=== PATIENT | female | born 2000 | race Caucasian/White ===

== ENCOUNTER → 2019-01-30 | Outpatient (CLI) | payer BC ==
[2019-01-30 11:29] VITALS: BP 139/83; PULSE 108; TEMP 97.6; BMI 53.3
[2019-01-30 12:31] LABS: HCT 30.6 % (34.0-46.0); HGB 9.8 gm/dL (11.4-16.0); Hypochromasia Marked; MCV 71.8 fL (80.0-100.0); Mean Platelet Volume 6.6; Microcytosis Slight; Platelet Count 360 k/uL (150-450); Poikilocytosis Slight; RBC 4.26 m/uL (3.80-5.40); RDW 14.2 % (11.5-15.5); WBC 5.8 k/uL (4.0-11.0)
--- NOTE | 2019-01-30 12:48 | P.HPBAR ---
Bariatric H&P - History & Physicial H&P Date: 01/30/19 History & Physicial: Visit/CC: initial bariatric consultation Patient initial contact: Initial weight: 174.814 kg Initial weight in pounds: 385.40 Height: 5 ft 11.26 in Initial BMI: 53.3 Last weight: Current weight: 174.814 kg Current weight in pounds: 385.40 Current BMI: 53.3 Proctor body weight (based on NIH guidelines): 70.896 kg Excess body weight loss: 0.0% The patient is a 18 year-old F who presents for Bariatric Assessment. HPI: She is looking into the gastric bypass. She reports GERD. She reports family history of morbid obesity on her mother's side. She reports using Adipex where she lost 100 pounds in 1 year and now has regained her weight. Her highest weight is at present and she has lost 14 pounds. She reports reflux with lower abdominal pain. She reports gallbladder problems in her family. She reports psychiatric mental health nurse medina nausea. She cannot sleep at night. She has trouble with fatty and processed foods including [employer]. She has family history of blood clots. No easy bruising. Esophageal cancer and lung cancer runs in the family. ABDOMEN: Soft, nontender ASSESSMENT: 1. Morbid obesity 2. GERD 3. Menorrhagia PLAN: 1. Recommend ultrasound of gallbladder including pelvis 2. Recommend seeing a weed burner Past Medical History Past Medical History: GERD/Reflux History of Any Multi-Drug Resistant Organisms: None Reported Past Surgical History: Orthopedic Surgery Additional Past Surgical History / Comment(s): sustained broken right femur at age 4 that required plates/screws, wisdom teeth extracted Past Anesthesia/Blood Transfusion Reactions: No Reported Reaction Additional Past Anesthesia/Blood Transfusion Reaction / Comm: No blood transf usion to date Past Psychological History: Anxiety Additional Psychological History / Comment(s): seeing PCP on 02/10/19 to discuss anxiety medication prescription Smoking Status: Never smoker Past Alcohol Use History: Rare Past Drug Use History: None Reported - Past Family History Mother Family Medical History: No Reported History Additional Family Medical History / Comment(s): Maternal grandmother from a DVT following knee surgery (pt states the doctor did not utilize SCD's after surgery) Father Family Medical History: No Reported History Additional Family Medical History / Comment(s): pt's paternal grandfather from esophogeal cancer, paternal great grandmother from lung cancer Surgical - Exam Vital Signs Temp Pulse BP 97.6 F 108 H 139/83 01/30/19 11:24 01/30/19 11:24 01/30/19 11:24 Results - Labs 01/30/19 11:39 Bariatric Checklist Checklist: Plan: Checklist: EGD: 1. Hiatal hernia: 2. H. Pylori: HgbA1c: Vitamin D: Smoking: Never smoker Primary care physician referral: Beth (jess MARIE, Dalila Collier) Psychiatry clearance: Cardiology clearance: Sleep study: Diet journal: VTE risk score: VTE risk level: Rehab needs at discharge:
[2019-01-30 12:51] LABS: INR 0.9 (<1.2); Prothrombin Time 9.9 sec (9.0-12.0)
[2019-01-30 12:53] LABS: Partial Thromboplastin Time 21.7 sec (22.0-30.0)
[2019-01-30 18:52] LABS: Parathyroid Hormone Intact 108.1 pg/mL (14.0-72.0)
[2019-01-30 20:47] LABS: Folate, Serum 6.8 ng/mL; Iron Saturation 6.14 (12.00-45.00)
[2019-01-30 21:07] LABS: Albumin 4.6 g/dL (3.80-4.90); Albumin/Globulin Ratio 2.09 (1.60-3.17); Anion Gap 8.1 mmol/L (4.00-12.00); Calcium 9.7 mg/dL (8.7-10.3); Carbon Dioxide 22.9 mmol/L (21.6-31.8); Globulin 2.2 g/dL (1.6-3.3); LDL Cholesterol,Calculated 62.4 mg/dL (0.0-131.0); Magnesium 2.1 mg/dL (1.5-2.4); Potassium 4.2 mmol/L (3.5-5.5); Total Bilirubin 0.3 mg/dL (0.3-1.2); Total Protein 6.8 g/dL (6.2-8.2); VLDL Calculation 13.6 mg/dL (5.00-40.00)
[2019-01-30 22:57] LABS: Hemoglobin A1C 4.9 % (4.0-6.0)
[2019-01-31 12:54] LABS: Zinc, Serum 98 ug/dL (60-130)
[2019-02-01 15:06] LABS: Vit B1(Thiamine) 47 ug/L (38-122)
[2019-02-04 00:43] LABS: Selenium 126 mcg/L (63-160)
[2019-02-04 08:31] LABS: Vitamin A 29 ug/dL (38-106)
== END ==
LOC: BARWHC3 10:00
PROVIDERS: ATTEND Surgery Plastic and Reconstructive Surgery
DX: E66.01 Morbid (severe) obesity due to excess calories (principal); N92.0 Excessive and frequent menstruation with regular cycle; K21.9 Gastro-esophageal reflux disease without esophagitis; E88.81 Metabolic syndrome and other insulin resistance; E55.9 Vitamin D deficiency, unspecified; I11.9 Hypertensive heart disease without heart failure; G47.30 Sleep apnea, unspecified; E21.1 Secondary hyperparathyroidism, not elsewhere classified; E89.1 Postprocedural hypoinsulinemia; D50.9 Iron deficiency anemia, unspecified; K90.9 Intestinal malabsorption, unspecified; K74.1 Hepatic sclerosis; N19 Unspecified kidney failure; K50.90 Crohn's disease, unspecified, without complications; R10.30 Lower abdominal pain, unspecified; R11.0 Nausea; Z68.43 Body mass index [BMI] 50.0-59.9, adult
CPT/HCPCS: 36415; 80053; 80061; 82306; 82525; 82607; 82728; 82746; 83036; 83540; 83550; 83735; 83970; 84100; 84134; 84255; 84425; 84443; 84590; 84630; 85027; 85610; 85730; 93005; 99201